=== PATIENT | male | born 1960 | race American Indian/Alaskan Native ===

== ENCOUNTER 2022-01-16 15:52 | Emergency (ER) | payer BC ==
--- NOTE | 2022-01-16 16:00 | Emergency Department Report ---
ED Neuro Deficit HPI - General Chief Complaint: Neuro Symptoms/Deficit Stated Complaint: POSSIBLE STROKE Time Seen by Provider: 01/16/22 15:58 Source: patient, EMS Mode of arrival: Stretcher Limitations: No Limitations - History of Present Illness Initial Comments: Who presents with confusion and right-sided facial droop and weakness has been going on since yesterday. History is obtained by EMS. Patient did not clock and at 6 PM and per he has been acting confused with activities of daily living. He denies having any pain but he has right-sided facial droop. - Related Data Allergies/Adverse Reactions: Allergies Allergy/AdvReac Type Severity Reaction Status Date / Time No Known Allergies Allergy Verified 01/16/22 17:27 ED Review of Systems ROS: Stated complaint: POSSIBLE STROKE Other details as noted in HPI Constitutional: denies: chills, fever Eyes: denies: eye pain, eye discharge, vision change ENT: denies: ear pain, throat pain Respiratory: denies: cough, shortness of breath, wheezing Cardiovascular: denies: chest pain, palpitations Endocrine: no symptoms reported Gastrointestinal: denies: abdominal pain, nausea, diarrhea Genitourinary: denies: urgency, dysuria Musculoskeletal: denies: back pain, joint swelling, arthralgia Skin: denies: rash, lesions Neurological: as per HPI, numbness. denies: headache, weakness, paresthesias Psychiatric: denies: anxiety, depression Hematological/Lymphatic: denies: easy bleeding, easy bruising ED Neuro Physical Exam - General Limitations: No Limitations General appearance: alert, in no apparent distress Suspected Stroke: Yes - Head Head exam: Present: atraumatic, normocephalic - Eye Eye exam: Present: normal appearance - ENT ENT exam: Present: mucous membranes moist - Neck Neck exam: Present: normal inspection - Respiratory Respiratory exam: Present: normal lung sounds bilaterally. Absent: respiratory distress - Cardiovascular Cardiovascular Exam: Present: regular rate, normal rhythm. Absent: systolic murmur, diastolic murmur, rubs, gallop - GI/Abdominal GI/Abdominal exam: Present: soft, normal bowel sounds - Rectal Rectal exam: Present: deferred - Extremities Exam Extremities exam: Present: normal inspection - Back Exam Back exam: Present: normal inspection - Neurological Exam Neurological exam: Present: alert, other (Right-sided facial droop) - NIHSS Assessment Interval: Baseline 1a. Level of Consciousness: alert/keenly responsive 1b. LOC Questions: answers both correctly 1c. LOC Commands: performs tasks correctly 2. Best Gaze: normal 3. Visual: no visual loss 4. Facial Palsy: partial paralysis 5b. Motor Arm Right: no drift 5a. Motor Arm Left: no drift 6a. Motor Leg Left: no drift 6b. Motor Leg Right: no drift 7. Limb Ataxia: present 1 limb 8. Sensory: normal 9. Best Language: no aphasia 10. Dysarthria: normal 11. Extinction/Inattention: no abnormality Total Score: 3 Stroke Severity: Minor Stroke - Psychiatric Psychiatric exam: Present: normal affect, normal mood - Skin Skin exam: Present: warm, dry, intact, normal color. Absent: rash ED Course Vital Signs 01/16/22 01/16/22 01/16/22 16:22 16:31 16:45 Temperature Pulse Rate 81 Respiratory 11 L Rate Blood Pressure 127/70 127/70 O2 Sat by Pulse 79 L 100 99 Oximetry 01/16/22 01/16/22 01/16/22 17:01 17:15 17:31 Temperature Pulse Rate 73 66 71 Respiratory 16 11 L 20 Rate Blood Pressure 117/69 127/70 116/79 O2 Sat by Pulse 100 100 100 Oximetry 01/16/22 01/16/22 01/16/22 17:45 18:01 18:15 Temperature Pulse Rate 76 60 63 Respiratory 18 20 17 Rate Blood Pressure 116/79 117/71 117/71 O2 Sat by Pulse 100 100 100 Oximetry 01/16/22 01/16/22 18:31 18:43 Temperature 98.8 F Pulse Rate 64 Respiratory 15 Rate Blood Pressure 112/73 O2 Sat by Pulse 100 Oximetry - Reevaluation(s) Reevaluation #1: 01/16/22 20:24 Patient's confusion and right facial droop have improved discussed with patient that they will be transferred to [facility]. - Consultations Consultation #1: 01/16/22 20:[address] Chan neurosurgeon at [facility] he accepts the patient patient will be transferred ER to ER - Lab Data Result diagrams: 01/16/22 16:29 Lab Results 01/16/22 01/16/22 01/16/22 Range/Units 16:29 16:29 16:29 WBC 8.0 (4.5-11.0) K/mm3 RBC 3.48 L (3.65-5.03) M/mm3 Hgb 11.2 L (11.8-15.2) gm/dl Hct 34.4 L (35.5-45.6) % MCV 99 H (84-94) fl MCH 32 (28-32) pg MCHC 33 (32-34) % RDW 12.7 L (13.2-15.2) % Plt Count 198 (140-440) K/mm3 Lymph % (Auto) 17.6 (13.4-35.0) % [place] % (Auto) 10.3 H (0.0-7.3) % Eos % (Auto) 0.5 (0.0-4.3) % Baso % (Auto) 0.5 (0.0-1.8) % Lymph # (Auto) 1.4 (1.2-5.4) K/mm3 [place] # (Auto) 0.8 (0.0-0.8) K/mm3 Eos # (Auto) 0.0 (0.0-0.4) K/mm3 Baso # (Auto) 0.0 (0.0-0.1) K/mm3 Seg Neutrophils % 71.1 H (40.0-70.0) % Seg Neutrophils # 5.7 (1.8-7.7) K/mm3 PT 15.7 H (12.2-14.9) Sec. INR 1.12 (0.87-1.13) APTT 27.2 (24.2-36.6) Sec. Thrombin Time 17.5 (15.1-19.6) Sec. Total Creatine Kinase 160 (55-170) units/L CK-MB (CK-2) 2.4 (0.0-4.0) ng/mL CK-MB (CK-2) Rel Index 1.5 (0-4) Troponin T < 0.010 (0.00-0.029) ng/mL Urine Color (Yellow) Urine Turbidity (Clear) Urine pH (5.0-7.0) Ur Specific [place] (1.003-1.030) Urine Protein (Negative) mg/dL Urine Glucose (UA) (Negative) mg/dL Urine Ketones (Negative) mg/dL Urine Blood (Negative) Urine Nitrite (Negative) Ur Reducing Substances Urine Bilirubin (Negative) Urine Ictotest (Negative) Urine Urobilinogen (<2.0) mg/dL Ur Leukocyte Esterase (Negative) Urine WBC (Auto) (0.0-6.0) /HPF Urine RBC (Auto) (0.0-6.0) /HPF U Epithel Cells (Auto) (0-13.0) /HPF Urine Mucus /HPF 01/16/22 Range/Units Unknown WBC (4.5-11.0) K/mm3 RBC (3.65-5.03) M/mm3 Hgb (11.8-15.2) gm/dl Hct (35.5-45.6) % MCV (84-94) fl MCH (28-32) pg MCHC (32-34) % RDW (13.2-15.2) % Plt Count (140-440) K/mm3 Lymph % (Auto) (13.4-35.0) % [place] % (Auto) (0.0-7.3) % Eos % (Auto) (0.0-4.3) % Baso % (Auto) (0.0-1.8) % Lymph # (Auto) (1.2-5.4) K/mm3 [place] # (Auto) (0.0-0.8) K/mm3 Eos # (Auto) (0.0-0.4) K/mm3 Baso # (Auto) (0.0-0.1) K/mm3 Seg Neutrophils % (40.0-70.0) % Seg Neutrophils # (1.8-7.7) K/mm3 PT (12.2-14.9) Sec. INR (0.87-1.13) APTT (24.2-36.6) Sec. Thrombin Time (15.1-19.6) Sec. Total Creatine Kinase (55-170) units/L CK-MB (CK-2) (0.0-4.0) ng/mL CK-MB (CK-2) Rel Index (0-4) Troponin T (0.00-0.029) ng/mL Urine Color Yellow (Yellow) Urine Turbidity Clear (Clear) Urine pH 5.0 (5.0-7.0) Ur Specific [place] > 1.030 H (1.003-1.030) Urine Protein 30 mg/dl (Negative) mg/dL Urine Glucose (UA) Negative (Negative) mg/dL Urine Ketones Negative (Negative) mg/dL Urine Blood 3+ (Negative) Urine Nitrite Negative (Negative) Ur Reducing Substances Not Reportable Urine Bilirubin 2+ (Negative) Urine Ictotest Negative (Negative) Urine Urobilinogen 4.0 (<2.0) mg/dL Ur Leukocyte Esterase 1+ (Negative) Urine WBC (Auto) 6.0 (0.0-6.0) /HPF Urine RBC (Auto) 37.0 (0.0-6.0) /HPF U Epithel Cells (Auto) < 1.0 (0-13.0) /HPF Urine Mucus 3+ /HPF - Radiology Data Radiology results: report reviewed, image reviewed PT had: Shows left intracranial mass measuring about around 5 cm with mass- effect - Medical Decision Making Chief medical diagnosis brain tumor Differential medical diagnosis: Ischemic stroke, hemorrhagic stroke I will get CT scan of head blood work, neurosurgery consult Nat - Core Measures AMI Core Measures Followed: No Measure Exclusions: not indicated - Thrombolytic Inclusion/Exclusion Thrombolytic Exclusion Criteria: Onset of Symptoms Unknown Thrombolytic Inclusion Criteria: Ischemic Stroke Onset< 3h Critical Care Time: Yes (120) Critical care attestation.: If time is entered above; I have spent that time in minutes in the direct care of this critically ill patient, excluding procedure time. ED Disposition Clinical Impression: Brain tumor, Facial droop Dis[facility]: [facility] Is pt being admited?: No Does the pt Need Aspirin: No Condition: Stable Instructions: Metastatic Brain Tumor, Adult Referrals: PRIMARY CARE, [Primary Care Provider] - 3-5 Days
--- NOTE | 2022-01-16 16:30 | Consultation ---
Assessment and Plan [facility] Consult Note # Demographics Consult Type: Acute Stroke Level 2 (4.5-24 hrs) Patient Location: Emergency Room First Name: Jason Last Name: Monroe Age: 61 Gender: Male Facility: [facility] Time of Initial Page (Eastern Time): 01/16/2022, 15:41 Time of Return Call (Eastern Time): 01/16/2022, 15:43 # HPI History: 61M with confusion, gait trouble, right droop and weakness. Last well about 18:00 yesterday reportedly per fiance. # Data Head CT: no bleed preliminarily reviewed by me, please refer to radiology read for official reading left sided mass lesion # Assessment Impression: Other brain mass # Plan Thrombolytic/Intervention: NOT IV Thrombolysis or IA Intervention candidate Thrombolytic Exclusion (< 3 hour window): time of onset unclear Thrombolytic Exclusion: > 4.5 hours Intraarterial Exclusion: clinically not consistent with stroke Imaging: (urgency: routine): MRI Brain with AND without contrast Medication: levetiracetam (Keppra) 500 mg twice daily Other: consult neurosurgery seizure precautions I have discussed my recommendations with the referring provider Disposition: admit # Logistics Telemedicine: phone only
--- NOTE | 2022-01-16 16:50 | Cat Scan Report ---
CT BRAIN: 01/16/2022 INDICATION / CLINICAL INFORMATION: Stroke symptoms. COMPARISON: None available. FINDINGS: BRAIN/INTRACRANIAL STRUCTURES: Unenhanced CT images of the brain were obtained. There is a large left frontal parenchymal mass with surrounding vasogenic edema. The dimensions of th e mass are somewhat difficult to determine on the noncontrast CT, although may be in the range of 5.5 cm. 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 Less likely possibility would include large metastasis. There is significant mass effect on th e left frontal lobe, with midline shift from approximately 10 mm. No other parenchymal lesions are identified. There is no definite evidence of hemorrhage. There are no abnormal extra-axial fluid collections. EXTRACRANIAL STRUCTURES: Unremarkable. IMPRESSION: Large presumed left frontal mass with associated edema, resulting in mass effect and midline shift. Follow-up imaging with postcontrast CT or preferably unenhanced and enhanced MRI is recommended. All CT scans at this location are performed using dose reduction to ALARA by means of automated expos ure control. Signer Name: Deshaun Joshi MD Signed: 01/16/2022 4:46 PM Workstation Name: [id number]
--- NOTE | 2022-01-16 16:52 | Cat Scan Report ---
CTA HEAD WITH CONTRAST 01/16/2022 HISTORY: stroke sx. COMPARISON: None. TECHNIQUE: All CT scans at this location are performed using CT dose reduction for ALARA by means of automated exposure control.. 3-D/MIP reformats postprocessed. Percentage stenosis is determined by d irect quantitative measurements of diseased internal carotid artery diameter compared with normal dis [place] internal carotid artery reference segments or by criteria similar to NASCET where applicable. CONTRAST: 100 ml of Omnipaque 350 FINDINGS: CTA HEAD: Intracranial vertebral arteries: No significant abnormality. Basilar artery: No significant abnormality. Posterior cerebral arteries: No significant abnormality. Intracranial internal carotid arteries: No significant abnormality. Anterior cerebral arteries: No significant abnormality. Middle cerebral arteries: No significant abnormality. Dural venous sinuses:Not optimally opacified. No significant abnormality. Additional findings: None. IMPRESSION: 1. No significant abnormality. Signer Name: Deshaun Joshi MD Signed: 01/16/2022 4:47 PM Workstation Name: [id number]
--- NOTE | 2022-01-16 16:55 | Cat Scan Report ---
CTA HEAD WITH CONTRAST 01/16/2022 HISTORY: stroke sx. COMPARISON: None. TECHNIQUE: All CT scans at this location are performed using CT dose reduction for ALARA by means of automated exposure control.. 3-D/MIP reformats postprocessed. Percentage stenosis is determined by d irect quantitative measurements of diseased internal carotid artery diameter compared with normal dis [place] internal carotid artery reference segments or by criteria similar to NASCET where applicable. CONTRAST: 100 ml of Omnipaque 350 FINDINGS: There is evidence of irregular peripheral enhancement of the left frontal mass demonstrated on the no ncontrast CT, with an overall size of mass estimated to be approximately 4.5 cm. Standard enhanced an d unenhanced MRI of the brain continues to be recommended for complete evaluation of this presumed pr imary brain neoplasm. CTA HEAD: Intracranial vertebral arteries: No significant abnormality. Basilar artery: No significant abnormality. Posterior cerebral arteries: No significant abnormality. Intracranial internal carotid arteries: No significant abnormality. Anterior cerebral arteries: Rightward deviation of the anterior cerebral arteries is present as resul t of the mass effect from the left frontal lobe lesion. Middle cerebral arteries: No significant abnormality. Dural venous sinuses:Not optimally opacified. No significant abnormality. Additional findings: None. IMPRESSION: 1. No significant vascular abnormality. Signer Name: Deshaun Joshi MD Signed: 01/16/2022 4:50 PM Workstation Name: [id number]
[2022-01-16 17:04] LABS: Basophils % (Auto) 0.5 % (0.0-1.8); Eosinophils % (Auto) 0.5 % (0.0-4.3); Hematocrit 34.4 % (35.5-45.6); Hemoglobin 11.2 gm/dl (11.8-15.2); Lymphocytes # (Auto) 1.4 K/mm3 (1.2-5.4); Lymphocytes % (Auto) 17.6 % (13.4-35.0); Mean Corpuscular HGB Conc 33 % (32-34); Mean Corpuscular Volume 99 fl (84-94); Monocytes # (Auto) 0.8 K/mm3 (0.0-0.8); Monocytes % (Auto) 10.3 % (0.0-7.3); Platelet Count 198 K/mm3 (140-440); Red Blood Count 3.48 M/mm3 (3.65-5.03); Red Cell Distribution Width 12.7 % (13.2-15.2)
[2022-01-16 17:26] LABS: Creatine Kinase MB 2.4 ng/mL (0.0-4.0)
[2022-01-16 17:56] LABS: Mucus,Urine 3+ /HPF
[2022-01-16 18:28] LABS: INR 1.12 (0.87-1.13)
[2022-01-16 18:29] LABS: Partial Thromboplastin Time 27.2 Sec. (24.2-36.6); Thrombin Time 17.5 Sec. (15.1-19.6)
[2022-01-16 18:32] LABS: Color,Urine Yellow (Yellow)
[2022-01-16 18:33] LABS: Bilirubin,Urine 2+ (Negative); Blood,Urine 3+ (Negative)
[2022-01-16 18:37] LABS: Ictotest,Urine Negative (Negative)
[2022-01-16] MEDS ORDERED: levETIRAcetam 1000 MG/NS 0.75% 1,000 MG/100 ML BAG IV ONE (19:03)
[2022-01-16] MEDS ORDERED: dexAMETHasone 20 MG/5 ML VIAL IV ONE (19:03)
[2022-01-16 20:13] VITALS: BP 133/82
--- NOTE | 2022-01-18 13:37 | Electrocardiograph Report ---
[facility] Test Date: 2022-01-16 Test Time: 16:47:13 Pat Name: ALEJANDRINA ARREGUIN Department: Room: Gender: M Radiology Supervisor: NURSE : 1960 Requested By: HUMBERTO WATTS Order Number: [id number] Reading MD: Juan Stoddard Measurements Intervals [place] Rate: 67 P: 0 MS: 62 QRS: 53 QRSD: 97 T: 50 QT: 393 QTc: 416 Interpretive Statements Sinus rhythm No previous ECG available for comparison Electronically Signed On 01-18-2022 13:36:50 EDT by Juan Stoddard
== END 2022-01-16 21:57 | disposition designated cancer center or children's hospital (05) ==
LOC: ED 15:52
DX: C71.9 Malignant neoplasm of brain, unspecified (principal); R29.810 Facial weakness
CPT/HCPCS: 36415; 70450; 70496; 70498; 81001; 82550; 82553; 84484; 85025; 85610; 85670; 85730; 93005; 96374; 96375; 99291; 99292; J1100; J1953; Q9967; 99285